=== PATIENT | female | born 1955 | race Caucasian/White ===

== ENCOUNTER 2023-02-16 14:01 | Outpatient (CLI) | payer MEDICARE, OTHER, SELFPAY ==
--- NOTE | ~2023-02-16 | CT_ITS ---
EXAMINATION: CT chest abdomen pelvis w con DATE: 02/16/2023 15:35 INDICATION: Weight loss. Fatigue. TECHNIQUE: Computed tomography (CT) of the chest, abdomen, and pelvis was performed with 100 mL Omnip aque 350 intravenous contrast. Automated exposure control and iterative reconstruction technique were employed. The dose-length product was 259.39 mGy-cm. COMPARISON: None FINDINGS: CHEST CT: There is mild scarring in paraspinal right lower lobe. No pleural effusion. Calcified left lung nodul es and calcified left hilar lymph nodes are consistent with old granulomatous disease. No pleural eff usion. The heart size is normal. No pericardial effusion. There is mild thoracic spondylosis. There i s mild chronic anterior wedging of T5 vertebral body. ABDOMEN/PELVIS CT: The liver and spleen are normal. There are changes of cholecystectomy. There are changes of gastric b ypass procedure. The pancreas, adrenal glands, and kidneys are normal. There are no dilated loops of bowel. The appendix is not visualized. There are no pathologically enlarged lymph nodes. There is no free intraperitoneal fluid. There is moderate lumbar spondylosis. IMPRESSION: 1. No etiology for the patient's symptoms. Reviewed, dictated and finalized at location E.
[2023-02-16 15:30] LABS: Estimated Glomerular Filt Rate > 60
== END 2023-02-16 14:02 | disposition home or self-care (01) ==
PROVIDERS: PCP Family Medicine; Visit Provider Family Medicine
DX: R53.83 Other fatigue (principal); R63.4 Abnormal weight loss; G43.009 Migraine without aura, not intractable, without status migrainosus; M54.9 Dorsalgia, unspecified; R11.0 Nausea; Z98.84 Bariatric surgery status
CPT/HCPCS: 71260; 74177; Q9967